=== PATIENT | female | born 1965 | race Caucasian/White ===

== ENCOUNTER 2023-09-01 13:52 | Emergency (ER) | payer OTHER, SELFPAY ==
--- NOTE | ~2023-09-01 | CT_ITS ---
EXAMINATION: CT abdomen pelvis w con DATE: 09/01/2023 17:21 INDICATION: Infraumbilical abdominal pain. TECHNIQUE: Computed tomography (CT) of the abdomen and pelvis was performed with 100 mL Omnipaque 350 intravenous contrast. Automated exposure control and iterative reconstruction technique were employe d. The dose-length product was 254.37 mGy-cm. COMPARISON: None. FINDINGS: The visualized portions of the lung bases demonstrate mild atelectasis. A calcified left michael ng nodule is consistent with old granulomatous disease. No pleural effusion. The heart size is normal . No pericardial effusion. The liver is normal. There are gallstones in the gallbladder, which is nor mal in size. The spleen, pancreas, adrenal glands, and right kidney are normal. 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 There are no dilated loops of bowel. The appendix is normal. In the right lower quadr ant, there is a 5.9 x 5.7 cm mass of fat with standing and periphery of soft tissue attenuation with tethering to the right inguinal canal. There are no pathologically enlarged lymph nodes. There is no free intraperitoneal fluid. There is moderate thoracic spondylosis and severe lumbar spondylosis. IMPRESSION: 1. 5.9 cm mass of fat in right lower quadrant, most likely fat necrosis. Reviewed, dictated and finalized at location E.
[2023-09-01 13:56] VITALS: BP 165/92; PULSE 116; RESP 18; TEMP 36.7; O2SAT 100
--- NOTE | 2023-09-01 14:01 | ECG_ITS ---
SEE SCANNED COPY FOR CONFIRMED REPORT MTDD
[2023-09-01 14:19] LABS: Basophils Percent Auto 0.3 % (0.2-1.2); Eosinophils Absolute Auto 0.1 K/mm3 (0-0.3); Hematocrit 46.2 % (37.0-47.0); Hemoglobin 15.5 g/dL (12.0-15.0); Immature Granulocyte Absolute 0.02 K/mm3 (0.00-0.031); Immature Granulocyte Percent A 0.2 % (0-0.5); Lymphocytes Absolute Auto 1.84 K/mm3 (0.9-3.2); Lymphocytes Percent Auto 21.4 % (18.3-44.2); Mean Corpuscular HGB Conc 33.5 g/dl (32-36); Mean Corpuscular Hemoglobin 30.8 pg (26-34); Mean Corpuscular Volume 91.7 fl (80-100); Mean Platelet Volume 9.4 fl (7.4-10.4); Monocytes Absolute Auto 0.4 K/mm3 (0.1-0.6); Monocytes Percent Auto 5.1 % (2.6-8.5); Neutrophils Absolute Auto 6.2 K/mm3 (1.3-6.7); Platelet Count Result 270 k/mm3 (150-375); Red Blood Count 5.04 M/mm3 (4.2-5.4); Red Cell Distribution Width 13.6 % (11.5-14.5); White Blood Count 8.6 K/mm3 (4.5-10.0)
[2023-09-01 14:33] LABS: Alanine Aminotransferase 21 U/L (6-35); Albumin Level 4.4 g/dL (3.5-5.1); Alkaline Phosphatase 80 U/L (38-126); Anion Gap 5 mmol/L (4-12); Aspartate Amino Transferase 24 U/L (14-36); Bilirubin,Total 0.5 mg/dL (0.2-1.3); Blood Urea Nitrogen 13 mg/dL (7-17); Calcium 9.4 mg/dL (8.4-10.2); Carbon Dioxide 27 mmol/L (22-30); Chloride 108 mmol/L (98-107); Estimated CRCL calculation 60 ml/min; Estimated Glomerular Filt Rate > 60; Glucose 135 mg/dL (65-110); Lipase 91 U/L (23-300); Potassium 3.4 mmol/L (3.4-5.0); Sodium 140 mmol/L (137-145)
[2023-09-01 15:58] LABS: Appearance Urine Clear (Clear); Bilirubin Urine Negative (Negative); Blood Urine Negative (Negative); Color Urine Yellow (Yellow); Glucose Urine UA Negative (Negative); Ketones Urine Trace mg/dL (Negative); Leukocyte Esterase Ur Negative LEU/UL (Negative); Nitrate Urine Negative (Negative); Protein Urine Negative (Negative); pH Urine 6.5 (5.0-9.0)
[2023-09-01 16:01] VITALS: BP 171/102; PULSE 83; RESP 13; O2SAT 99
[2023-09-01 16:03] LABS: Add Urine Microscopic? NO
[2023-09-01 16:31] VITALS: BP 184/120; PULSE 101; RESP 20; O2SAT 100
[2023-09-01] MEDS: KETOROLAC 15 MG/ML VIAL (*BKC) IV PUSH (18:17)
[2023-09-01 18:35] VITALS: BP 164/112; PULSE 96; RESP 20; TEMP 36.4; O2SAT 99
--- NOTE | 2023-09-01 18:45 | ED.GENADULT ---
HPI - General Adult General Chief complaint: Abdominal Pain Stated complaint: abd pain/ palpatations Time Seen by Provider: 09/01/23 16:20 History of Present Illness HPI narrative: Eulalia Holliday is a 58 y/o female who presents today with reports of having having mid to right lower abdominal pain for about 3 weeks. She denies any contributing symptoms/ no fever/chills/ no changes with urination/ denies changes to Bowels. Last BM was today Related Data Allergies Allergy/AdvReac Type Severity Reaction Status Date / Time No Known Allergies Allergy Mild Verified 09/01/23 13:55 Review of Systems Review of Systems: All systems reviewed & are unremarkable except as noted in HPI and below Exam Narrative: GENERAL: Well-appearing, well-nourished, and in no acute distress. HEAD: Normocephalic, atraumatic. EYES: PERRLA and EOMI. ENT: Nares clear, no rhinorrhea or epistaxis. Mucous membranes moist. Oropharynx without tonsillar hypertrophy exudate or other lesions. NECK: Supple. No adenopathy or masses. No carotid bruits or JVD CHEST: Clear to auscultation. No respiratory distress. No wheezes rales or rhonchi HEART: Regular rate and rhythm. No murmur heard. Normal peripheral pulses. ABDOMEN: Soft, nondistended, normal active bowel sounds, tender to the right lower quadrant with palpation EXTREMITIES: Normal range of motion. No edema. SKIN: Warm, dry, no rash. NEURO: No focal deficits. Alert and oriented x3. PSYCH: Normal mood and affect. Course Vital Signs Vital signs: Vital Signs Temperature 36.7 C 09/01/23 13:56 Pulse Rate 116 H 09/01/23 13:56 Respiratory Rate 18 09/01/23 13:56 Blood Pressure 165/92 H 09/01/23 13:56 Pulse Oximetry 100 09/01/23 13:56 Temperature 36.4 C 09/01/23 18:35 Pulse Rate 96 09/01/23 18:35 Respiratory Rate 20 09/01/23 18:35 Blood Pressure 164/112 H 09/01/23 18:35 Pulse Oximetry 99 09/01/23 18:35 Medical Decision Making [facility] Narrative Medical decision making narrative: 58 y/o female who presents with reports of having mid umbilical to right lower quadrant pain for about 3 weeks. She states the pain is constant with waves of increased pain. Denies nausea / vomiting/ fever/chills/ urinary symptoms/ changes to bowels She adds that she had a right lower inguinal hernia repaired about 1 1/2 years ago at an OSH Concern for : UTI/ ureterolithiasis / hernia / Plan to check basic labs and CT of abdomen pelvis CBC - hemodynamically stable / no leukocytosis CMP - unremarkable UA- within normal limits CT - 5.9 cm mass of fat in right lower quadrant, most likely fat necrosis Consulted with General Surgery Dr. Johnson who states this is likely a chronic finding with the pain for about 3 weeks no evidence for infection and he recommends follow up with her surgeon who did her hernia repair or she can also follow up with him. Discussed this finding and plan with pt and she is agreeable with plan I also talked with pt regarding her elevated b/p - She states that she used to be on atenolol for her blood pressure and it worked but she has been trying holistic treatment at home. I offered to start her on a new medication for her b/p and she does not want a new medication but agrees that she will get back on her atenolol She denies CP/SOB/headache/ vision changes/ numbness /tingling She was counseled on the importance of b/p control and discussed the risk factors when b/p is not well controlled such as stroke/ AL/ renal failure She verbalizes understanding and plans to get back on her atenolol and also plans to follow up with surgery . Medical Records Medical records reviewed: Yes I reviewed the external patient's medical records. Vital Signs Vital Signs: Vital Signs Temperature 36.7 C 09/01/23 13:56 Pulse Rate 116 H 09/01/23 13:56 Respiratory Rate 18 09/01/23 13:56 Blood Pressure 165/92 H 09/01/23 13:56 Pulse Oximetry 100 09/01/23 13:56
== END 2023-09-01 19:13 | disposition home or self-care (01) ==
PROVIDERS: Preventive Medicine Aerospace Medicine; Emergency Provider Nurse Practitioner Family
DX: R19.03 Right lower quadrant abdominal swelling, mass and lump (principal)
CPT/HCPCS: 36415; 74177; 80053; 81003; 83690; 85025; 93005; 96374; 96375; 99284; J1885; Q9967